=== PATIENT | male | born 1980 | race Caucasian/White ===

== ENCOUNTER 2021-11-27 20:46 | Emergency (ER) | payer OTHER ==
[2021-11-27] MEDS ORDERED: LIDOCAINE HCL 2% (20ML MULTI-DOSE VIAL) ONE (20:53)
[2021-11-27 20:55] VITALS: RESP 16; BMI 27.1
[2021-11-27 21:11] VITALS: BP 115/79; PULSE 66; TEMP 99
== END 2021-11-27 21:11 | disposition home or self-care (01) ==
LOC: FER 20:46
DX: L76.22 Postprocedural hemorrhage of skin and subcutaneous tissue following other procedure (principal)
CPT/HCPCS: 99283-25